=== PATIENT | female | born 1930 | race Caucasian/White ===

== ENCOUNTER 2019-06-03 08:43 | Outpatient (CLI) | payer MEDICARE ==
--- NOTE | 2019-06-03 10:26 | MRI ---
BRAIN MRI WITH AND IWTHOUT CONTRAST: COMPARISON: 12/07/2018. HISTORY: Meningioma followup. FINDINGS: Calvarium has a normal T1 marrow signal intensity. Midline brain parenchymal structures are unremark able. No hemorrhage on the axial gradient echo sequence. There is no intraparenchymal mass, midline shift. Basilar cisterns are patent. Overall, brain volum e is age appropriate. Cortical leon-white matter differentiation is preserved. No hydrocephalus. Minimal T2 and FLAIR white matter hyperintensities, likely due to chronic small-vessel ischemic randall e. Central arterial flow voids are maintained. Absent restricted diffusion. Minimal mucosal thickening of the paranasal sinuses. There is a small dural-based enhancing focus along the left frontal convexity with associated hypoint ensity on the gradient echo sequence, compatible with a calcified meningioma measuring 0.5 x 0.9 cm. There is minimal associated mass effect upon the left frontal lobe. Redemonstration of a left and r ight parafalcine meningioma. There is associated T2, gradient echo sequence hypointensity suggesting components of calcification. There is persistent mass effect upon the medial left and right frontal lobes without significant vasogenic edema or frontal lobe displacement. The postcontrast images dem onstrate heterogeneous enhancement. Meningioma measures 2.9 cm craniocaudal x 3.4 cm mediolateral x 3.5 cm anterior posterior. Previously, meningioma measured 3.1 cm craniocaudal x 3.4 cm mediolateral x 3.2 cm anterior posterior. There does appear to be slight progression with regards to the meningi kimo. There are small foci of lobulation along the anterior superior left falx, similar to the previo us exam. IMPRESSION: 1. Slight interval increase in size of a left and right interhemispheric parafalcine meningioma. 2. 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 POS: [facility]
[2019-06-03] MEDS ORDERED: Magnevist 469MG/ML 20 ML VIAL ONE (14:53)
== END 2019-06-03 08:44 | disposition home or self-care (01) ==
LOC: MRI 08:43
PROVIDERS: ATTEND Internal Medicine
DX: D32.9 Benign neoplasm of meninges, unspecified (principal)
CPT/HCPCS: 70553; 82565; A9579